=== PATIENT | male | born 1985 | race Caucasian/White ===

== ENCOUNTER 2016-06-20 19:49 | Emergency (ER) | payer OTHER ==
[~2016-06-20] VITALS: Ht 175.3 cm; Wt 83.4 kg
[2016-06-20 21:27] LABS: HEMATOCRIT 35.3 % (38.0-50.0); MCH 33.2 PG (29.0-34.0); MCHC 34.8 G/DL (30.0-36.0); MCV 95.4 FL (86-99); MEAN PLAT.VOLUME 14.5 uM^3 (9.0-12.4); PLATELET COUNT 99 K/uL (156-360); RBC DIS.WIDTH-CV 13.9 % (11.8-14.6); RBC DIS.WIDTH-SD 48.8 % (39-53); WHITE BLOOD COUNT 7.8 K/uL (4.1-10.2)
[2016-06-20 21:35] LABS: CHLORIDE 106 mEq/L (99-109); POTASSIUM 3.9 mEq/L (3.7-5.4); SODIUM 140 mEq/L (136-147)
[2016-06-20 21:37] LABS: GLUCOSE 102 mg/dL (70-99)
[2016-06-20 21:38] LABS: ANION GAP 11 MEQ/L (2-14)
[2016-06-20 21:40] LABS: SERUM ETHYL ALCOHOL < 10 mg/dL
[2016-06-20 21:41] LABS: GFR ESTIMATE (CALCULATED) > 59 mL/min/
[2016-06-20 21:43] LABS: UREA NITROGEN (BUN) 19 mg/dL (9-23)
[2016-06-20 21:44] LABS: SALICYLATE < 5.0 MG/DL (15-30)
[2016-06-20 21:51] LABS: AMPHETAMINE NEGATIVE (500 ng/mL); BARBITURATES NEGATIVE (200 ng/mL); BENZODIAZEPINES PRESUMPTIVE POSITIVE (150 ng/mL); COCAINE NEGATIVE (150 ng/mL); INTERNAL CONTROLS VALID? YES; METHADONE NEGATIVE (200 ng/mL); METHAMPHETAMINE NEGATIVE (500 ng/mL); OPIATES (MORPHINE) NEGATIVE (100 ng/mL); OXYCODONE NEGATIVE (100 ng/mL); PHENCYCLIDINE NEGATIVE (25 ng/mL); PROPOXYPHENE NEGATIVE (300 ng/mL); THC CANNABINOIDS NEGATIVE (50 ng/mL); TRICYCLIC ANTIDEPRESSANTS NEGATIVE (300 ng/mL)
[2016-06-20 22:01] LABS: ADD MEDTOX COMMENT Y
[2016-06-20 22:59] LABS: BENZODIAZEPINES QUANT VALUE 0 NG/ML; BENZODIAZEPINES, URINE SCREEN Negative (200 ng/mL)
[2016-06-20 23:03] VITALS: BP 111/77
== END 2016-06-20 23:03 | disposition home or self-care (01) ==
LOC: EME 19:49
PROVIDERS: Emergency Medicine
DX: F25.9 Schizoaffective disorder, unspecified (principal); F17.200 Nicotine dependence, unspecified, uncomplicated; Z88.8 Allergy status to other drugs, medicaments and biological substances
CPT/HCPCS: 80048; 84999; 85027; 90839; 99281; 99285; G0480; J2060

== ENCOUNTER 2016-06-23 17:05 | Emergency (ER) | payer OTHER ==
[~2016-06-23] VITALS: Ht 175.3 cm; Wt 84.0 kg
[2016-06-23 18:18] LABS: HEMATOCRIT 36.5 % (38.0-50.0); MCH 33.1 PG (29.0-34.0); MCV 97.3 FL (86-99); MEAN PLAT.VOLUME 14.2 uM^3 (9.0-12.4); PLATELET COUNT 107 K/uL (156-360); RBC DIS.WIDTH-CV 14.3 % (11.8-14.6); RBC DIS.WIDTH-SD 51.1 % (39-53); RED BLOOD COUNT 3.75 M/uL (4.00-5.50); WHITE BLOOD COUNT 6.9 K/uL (4.1-10.2)
[2016-06-23 18:29] LABS: CHLORIDE 108 mEq/L (99-109); SODIUM 144 mEq/L (136-147)
[2016-06-23 18:31] LABS: GLUCOSE 80 mg/dL (70-99)
[2016-06-23 18:32] LABS: ANION GAP 10 MEQ/L (2-14)
[2016-06-23 18:35] LABS: GFR ESTIMATE (CALCULATED) > 59 mL/min/
[2016-06-23 18:36] LABS: UREA NITROGEN (BUN) 17 mg/dL (9-23)
[2016-06-23 19:58] LABS: ADD MIUA? NO; BILIRUBIN NEGATIVE; BLOOD NEGATIVE; COLOR YELLOW ((YELLOW)); GLUCOSE (STRIP) NEGATIVE; KETONES NEGATIVE; LEUKOCYTES NEGATIVE; NITRITE NEGATIVE; PROTEIN (STRIP) NEGATIVE; SPECIFIC GRAVITY 1.015 (1.000-1.030); UCUL ADDED? NO; UROBILINOGEN 0.2 MG/DL (0.2-1.0)
[2016-06-23] MEDS ORDERED: KEPPRA500 MG PO (21:22)
[2016-06-23 21:51] VITALS: BP 124/72
== END 2016-06-23 21:52 | disposition home or self-care (01) ==
LOC: EME 17:05
PROVIDERS: Emergency Medicine
DX: G40.909 Epilepsy, unspecified, not intractable, without status epilepticus (principal); F17.200 Nicotine dependence, unspecified, uncomplicated
CPT/HCPCS: 70450; 80048; 80164; 81003; 85027; 87086; 99281; 99283